=== PATIENT | male | born 1955 | race Caucasian/White ===

== ENCOUNTER → 2018-04-29 11:23 | Outpatient (CLI) | payer BC, SELFPAY ==
--- NOTE | 2018-04-29 | DI.US.S_ITS ---
PROCEDURE: US PERIPH VENOUS LOW EXTREM RT INDICATIONS: RIGHT LOWER LEG PAIN AND SWELLING TECHNIQUE: Real-time imaging, as well as color and pulse Doppler interrogation, were performed of the lower extremity deep veins from the inguinal ligament to the popliteal fossa. COMPARISON: None. FINDINGS: The deep veins are normally compressible, and free of intraluminal thrombus. Color and pulse Doppler demonstrate normal phasic intraluminal flow. There is normal augmentation response to distal compression maneuver. IMPRESSION: No evidence of deep vein thrombosis involving the right lower extremity. Dictated by: Jaqui Jeter MD, PhD on 04/29/2018 at 11:12 Approved by: Jaqui Jeter MD, PhD on 04/29/2018 at 11:12
== END ==
PROVIDERS: PCP Family Medicine; Visit Provider Family Medicine
DX: M79.661 Pain in right lower leg (principal); R22.41 Localized swelling, mass and lump, right lower limb
CPT/HCPCS: 93971

== ENCOUNTER → 2018-05-19 09:47 | Outpatient (CLI) | payer BC, SELFPAY ==
--- NOTE | 2018-05-19 | DI.CT.S_ITS ---
PROCEDURE: CT LE RT W CON INDICATIONS: LOCALIZED SWELLING RIGHT LOWER LIMB TECHNIQUE: After the intra-articular administration of 10 mL of contrast, 1-1.5 mm axial sections acquired through the knee, with 0.75 mm coronal and sagittal reformats. COMPARISON: None. FINDINGS: Image quality: Excellent. Bones: No acute fracture, dislocation, or suspicious osseous lesion is identified involving the imaged osseous structures of the bilateral lower extremities. Plantar and Achilles spurs involving the calcaneus are present. There are mild to moderate degenerative changes involving both feet. Mild degenerative changes of the bilateral knees are present. No definite knee joint effusions are evident. Soft tissues: There is prominent atrophy identified involving the bilateral gastrocnemius and soleus muscles. No soft tissue masses or loculated fluid collections are identified. Mild subcutaneous edema about the bilateral lower extremities is more pronounced at the level of the ankles. Both Achilles tendons are noted to be markedly thickened in near their insertions. Calcifications within the distal aspect of the tendons is present, suggesting chronic partial avulsions. Otherwise, please note that evaluation of the tendinous, ligamentous, and cartilaginous structures is not adequate on CT. Extensive atherosclerosis is noted involving the bilateral lower extremity arteries. However, flow is evident to the level of the foot. No suspicious soft tissue enhancement is identified. IMPRESSION: 1. Severe bilateral Achilles tendinopathy with probable intrasubstance partial thickness tearing. This is likely chronic given the pronounced atrophy involving the bilateral gastrocnemius and soleus muscles. Please correlate clinically. 2. Mild to moderate degenerative changes of the knees and bilateral feet. 3. Severe bilateral lower extremity arterial atherosclerosis. 4. Bilateral lower leg subcutaneous edema is more pronounced at the level of the ankle. There are no abscesses or drainable fluid collections. 5. No soft tissue masses or suspicious osseous lesions. Dictated by: Alex Feldman M.D. on 05/19/2018 at 11:25 Approved by: Alex Feldman M.D. on 05/19/2018 at 11:41
== END ==
PROVIDERS: PCP Family Medicine; Visit Provider Family Medicine
DX: R22.41 Localized swelling, mass and lump, right lower limb (principal); M17.0 Bilateral primary osteoarthritis of knee; M19.072 Primary osteoarthritis, left ankle and foot; M19.071 Primary osteoarthritis, right ankle and foot; I70.203 Unspecified atherosclerosis of native arteries of extremities, bilateral legs
CPT/HCPCS: 73701; Q9967

== ENCOUNTER → 2018-07-23 10:17 | Outpatient (CLI) | payer BC, SELFPAY ==
--- NOTE | 2018-07-23 | DI.US.S_ITS ---
PROCEDURE: US ERICK LIMITED SINGLE LEVEL INDICATIONS: CLAUDICATION TECHNIQUE: Ankle-brachial indices were obtained bilaterally and recorded. COMPARISONS: FINDINGS: Right ankle brachial index (ERICK): 1.4 Left ankle brachial index (ERICK): 1.3 >0.95 is within normal limits. 0.5 to 0.9: Mild to moderate disease consistent with claudication; Duplex imaging warranted. <0.5: Moderately severe multilevel disease; rest pain is likely. <0.4: Severe multilevel disease consistent with ischemic ulceration. <0.3: Severe multilevel disease consistent with gangrene and tissue loss. IMPRESSION: Normal ankle brachial index bilaterally. Dictated by: Jaquan Jung M.D. on 07/23/2018 at 12:14 Approved by: Jaquan Jung M.D. on 07/23/2018 at 12:15
== END ==
PROVIDERS: PCP Family Medicine; Visit Provider Family Medicine
DX: I73.9 Peripheral vascular disease, unspecified (principal)
CPT/HCPCS: 93922

== ENCOUNTER → 2019-05-21 10:27 | Outpatient (CLI) | payer BC, SELFPAY ==
--- NOTE | 2019-05-21 | DI.RAD.S_ITS ---
PROCEDURE: XR LUMBAR SPINE MIN 4V INDICATIONS: Polyneuropathy, unspecified TECHNIQUE: 5 views of the lumbar spine were acquired. COMPARISON: None. FINDINGS: Bones: No fracture or focal osseous destruction. Multilevel degenerative endplate sclerosis and spurring. Diffuse facet arthropathy. Straightening of the normal lordotic curvature. Grade 1 anterolisthesis of L4 on L5 diffuse moderate narrowing of lumbar disc spaces. Partially visualized levocurvature of the thoracic spine Soft tissues: Overlying bowel gas pattern is normal. No suspicious soft tissue calcifications. Oblique images: No pars defects. IMPRESSION: Moderate multilevel lumbar spondylosis and facet arthropathy. Grade 1 anterolisthesis of L4 on L5. Dictated by: Darrius Huffman M.D. on 05/21/2019 at 11:37 Approved by: Darrius Huffman M.D. on 05/21/2019 at 11:38
== END ==
PROVIDERS: PCP Nurse Practitioner; Visit Provider Psychiatry & Neurology Neurology
DX: G62.9 Polyneuropathy, unspecified (principal); G96.8 Other specified disorders of central nervous system; M47.816 Spondylosis without myelopathy or radiculopathy, lumbar region; M43.16 Spondylolisthesis, lumbar region
CPT/HCPCS: 72110

== ENCOUNTER → 2019-07-02 07:50 | Outpatient (CLI) | payer BC, SELFPAY ==
--- NOTE | 2019-07-02 | DI.MRI.S_ITS ---
PROCEDURE: MR LUMBAR SPINE WO CON INDICATIONS: Radiculopathy, lumbosacral region TECHNIQUE: Noncontrast sagittal T1 spin echo and T2 fast echo, sagittal STIR, axial T1 and T2 fast spin echo through the lumbar spine. In cases with scoliosis, additional coronal T2 fast spin echo may be performed. COMPARISON: None. FINDINGS: Image quality: Excellent. Alignment and Curvature: Grade 1 anterolisthesis of L4 on L5. Bone Marrow: No fracture. Multilevel degenerative endplate sclerosis and spurring. Diffuse facet arthropathy. Multilevel Schmorl's nodes, without definite adjacent marrow edema. Mild multilevel dorsal epidural lipomatosis. Spinal Cord: Conus medullaris terminates at the L1 level. Visualized cord demonstrates normal signal and size. Paraspinous Soft Tissues: There is nonspecific, dependent posterior subcutaneous soft tissue edema from level of L2-sacrum L1-L2: No definite central canal narrowing. Lateral recesses appear patent. Mild bilateral foraminal stenosis L2-L3: Severe central canal narrowing. Severe partial effacement of both lateral recesses with bilaterally symmetric appearance. Severe left foraminal stenosis with nerve root compression. Moderate right foraminal stenosis with nerve root compression L3-L4: Severe central canal narrowing. Partial effacement of both lateral recesses with bilaterally symmetric appearance. Moderate right foraminal narrowing with slight nerve root compression. Moderate left foraminal stenosis. L4-L5: Severe central canal narrowing. Partial effacement of both lateral recesses with bilaterally symmetric appearance. Moderate to severe bilateral foraminal stenosis with borderline nerve root compression. L5-S1: Dorsal epidural lipomatosis. Mild central canal narrowing. Partial effacement of both lateral recesses with bilaterally symmetric appearance. Severe right foraminal stenosis with slight nerve root compression. Moderate left foraminal stenosis IMPRESSION: Diffuse lumbar spondylosis and facet arthropathy. Grade 1 anterolisthesis of L4 on L5. Severe central canal stenoses at L2-L3, L3-L4, L4-L5 Diffuse, bilateral foraminal stenoses as detailed above by spinal level. Dictated by: Darrius Huffman M.D. on 07/02/2019 at 9:12 Approved by: Darrius Huffman M.D. on 07/02/2019 at 9:21
== END ==
PROVIDERS: PCP Nurse Practitioner; Visit Provider Psychiatry & Neurology Neurology
DX: M47.26 Other spondylosis with radiculopathy, lumbar region (principal); M48.061 Spinal stenosis, lumbar region without neurogenic claudication; M48.07 Spinal stenosis, lumbosacral region; M43.16 Spondylolisthesis, lumbar region
CPT/HCPCS: 72148

== ENCOUNTER → 2019-10-21 08:31 | Outpatient (CLI) | payer BC, SELFPAY ==
--- NOTE | 2019-10-21 | DI.MRI.S_ITS ---
PROCEDURE: MR CERVICAL SPINE WO CON INDICATIONS: Bilat hand numbness; Hx severe lumbar stenosis TECHNIQUE: Noncontrast sagittal T1 spin echo and T2 fast spin echo, sagittal STIR, foraminal oblique sagittal T2 fast spin echo, and axial gradient echo or T2 fast spin echo through the cervical spine. COMPARISON: None. FINDINGS: Image quality: Excellent. Alignment and Curvature: There is mild straightening of the mid and lower cervical spine. Bone Marrow: Marrow demonstrates normal overall signal. Incidental note of vertebral body hemangioma at C7. Spinal Cord: Effacement and flattening of the cervical spinal cord at C3 secondary to severe canal stenosis described below. There is associated small focus of myelomalacia. There is also mild effacement of the anterior spinal cord at C4-5 secondary to central posterior disc osteophyte complex. There is effacement and minimal flattening of the spinal cord at C6-7 without associated cord signal abnormalities. No cerebellar tonsillar herniation. Paraspinous Soft Tissues: No paravertebral masses. Prevertebral soft tissues are normal in thickness. C2-C3: Minimal bilateral uncovertebral osteoarthrosis. No significant neuroforaminal stenosis. No significant spinal canal stenosis. C3-C4: Moderate degenerative endplate changes with endplate osteophyte formation and broad-based posterior disc osteophyte complex. Severe bilateral uncovertebral osteoarthrosis and bilateral facet arthropathy are also noted. Combination of findings result in severe left and moderate-severe right bilateral neuroforaminal stenosis and severe spinal canal stenosis at this level. Residual AP diameter measures approximately 6 mm. There is associated cord deformation and small focus of increased T2 signal intensity of the spinal cord compatible with myelomalacia. C4-C5: Degenerative endplate changes with prominent endplate osteophyte formation, bilateral facet arthrosis, and left greater than right bilateral uncovertebral osteoarthrosis. Findings result in moderate left and mild right bilateral neuroforaminal stenosis and moderate spinal canal stenosis. No cord signal abnormalities. Mild effacement of the anterior spinal cord. C5-C6: Mild bilateral uncovertebral osteoarthrosis and minimal facet arthropathy. No significant neuroforaminal or spinal canal stenosis at this level. C6-C7: Degenerative endplate changes, endplate osteophyte formation, bilateral facet arthropathy, bilateral uncovertebral osteoarthrosis, and eccentric to the right broad-based posterior disc osteophyte complex results in moderate-severe right and moderate left neuroforaminal stenosis and severe spinal canal stenosis. There is effacement of the spinal cord at this level without cord signal abnormalities. C7-T1: Mild bilateral uncovertebral osteoarthrosis and facet arthropathy. No significant neuroforaminal or spinal canal stenosis. IMPRESSION: Severe multilevel, multifactorial cervical spondylosis noted throughout most of the cervical spine as detailed above vertebral body level. Findings are most severe at C3-4 where severe spinal canal stenosis is identified and associated with a small focus of abnormal T2 spinal cord hyperintensity consistent with myelomalacia. Please see above for details by vertebral body level. Dictated by: Chico Rossi M.D. on 10/21/2019 at 13:43 Approved by: Chico Rossi M.D. on 10/21/2019 at 14:01
== END ==
PROVIDERS: PCP Nurse Practitioner; Referring Provider Neurological Surgery; Visit Provider Neurological Surgery
DX: R20.0 Anesthesia of skin (principal); M47.812 Spondylosis without myelopathy or radiculopathy, cervical region; M48.02 Spinal stenosis, cervical region; M48.061 Spinal stenosis, lumbar region without neurogenic claudication; G95.89 Other specified diseases of spinal cord
CPT/HCPCS: 72141

== ENCOUNTER → 2020-02-17 10:38 | Outpatient (CLI) | payer BC, SELFPAY ==
--- NOTE | 2020-02-17 10:43 | DI.RAD.S_ITS ---
PROCEDURE: XR CERVICAL SPINE 1V INDICATIONS: SPINE PAIN TECHNIQUE: Single lateral view of the cervical spine acquired. COMPARISON: [facility], MR, MR CERVICAL SPINE WO CON, 10/21/2019, 8:45. FINDINGS: Bones: Postoperative changes are seen, with an anterior cervical spine fusion plate at the C3 through C7 levels. The fusion plate appears well seated. No findings of hardware failure or hardware loosening are seen. Disc spacers are seen throughout the fused region. There is straightening of the normal cervical lordosis. No displaced fractures are seen. No suspicious lytic or blastic lesions are seen. Soft tissues: No prevertebral soft tissue swelling. IMPRESSION: Unremarkable postoperative hardware can be seen on this single view study. Dictated by: Luis Alberto Moscoso M.D. on 02/17/2020 at 11:02 Approved by: Luis Alberto Moscoso M.D. on 02/17/2020 at 11:03
== END ==
PROVIDERS: PCP Nurse Practitioner; Referring Provider Neurological Surgery; Visit Provider Neurological Surgery
DX: M48.062 Spinal stenosis, lumbar region with neurogenic claudication (principal); M54.9 Dorsalgia, unspecified; Z98.1 Arthrodesis status
CPT/HCPCS: 72020

== ENCOUNTER → 2020-06-29 10:13 | Outpatient (CLI) | payer BC, SELFPAY ==
--- NOTE | 2020-06-29 | DI.RAD.S_ITS ---
PROCEDURE: XR CERVICAL SPINE 4V OR 5V INDICATIONS: lumbar stenosis TECHNIQUE: 5 views of the cervical spine were acquired. COMPARISON: [facility], CR, XR CERVICAL SPINE 1V, 02/17/2020, 10:33. FINDINGS: Bones: No fracture. Postsurgical change related to ACDF from C3-C7. Interbody cage grafts and chronic osseous fusion from C3-C7. Diffuse facet arthropathy. Straightening of the normal lordotic curvature. Hardware appears intact. No evidence of loosening. No evidence of abnormal motion with dynamic flexion and extension lateral views. Soft tissues: Prevertebral soft tissues are normal in thickness. IMPRESSION: No evidence of abnormal motion with dynamic flexion and extension lateral views. Postsurgical and degenerative changes as above Dictated by: Darrius Huffman M.D. on 06/29/2020 at 14:22 Approved by: Darrius Huffman M.D. on 06/29/2020 at 14:28
== END ==
PROVIDERS: PCP Nurse Practitioner; Referring Provider Neurological Surgery; Visit Provider Neurological Surgery
DX: M48.062 Spinal stenosis, lumbar region with neurogenic claudication (principal)
CPT/HCPCS: 72050

== ENCOUNTER → 2020-07-20 11:17 | Outpatient (CLI) | payer BC, SELFPAY ==
[2020-07-20 12:06] LABS: Appearance Urine UA CLEAR; Bilirubin Urine UA NEGATIVE (NEGATIVE); Color Urine UA YELLOW; Glucose Urine UA NEGATIVE (Negative); Ketones Urine UA NEGATIVE (NEGATIVE); Leukocyte Esterase Urine UA NEGATIVE (NEGATIVE); Nitrite Urine UA NEGATIVE (Negative); Occult Blood Urine UA NEGATIVE (Negative); Protein Urine UA NEGATIVE (Negative); Specific Gravity Urine UA 1.015 (1.000-1.035); Urobilinogen Urine UA 0.2 E.U./dL (0.2)
[2020-07-20 12:36] LABS: Bacteria Urine Few (2-10); Calcium Oxalate Crystals Urine Occasional; Culture Indicated Urine Cult Not Indicated; RBC Urine 0-1/HPF (0-5/HPF); Squamous Epithelial Cell Urine 0-1 /HPF (0-5/HPF); WBC Urine 0-1/HPF (0-5/HPF)
== END ==
PROVIDERS: PCP Nurse Practitioner; Referring Provider Nurse Practitioner; Visit Provider Neurological Surgery
DX: Z01.812 Encounter for preprocedural laboratory examination (principal)
CPT/HCPCS: 81001

== ENCOUNTER → 2020-12-19 08:42 | Outpatient (CLI) | payer BC, SELFPAY ==
[2020-12-19 12:10] LABS: COVID19 -Nasal RAPID Negative (Negative)
== END ==
PROVIDERS: PCP Nurse Practitioner; Referring Provider Physician Assistant; Visit Provider Physician Assistant
DX: Z01.812 Encounter for preprocedural laboratory examination (principal); Z20.822 Contact with and (suspected) exposure to COVID-19
CPT/HCPCS: 87635

== ENCOUNTER → 2020-12-19 08:58 | Outpatient (CLI) | payer BC, SELFPAY ==
--- NOTE | 2020-12-20 09:17 | PM.TREADMILL ---
Cardiac Stress Test Report Referral & Results Date Patient Seen: 12/20/20 Time Patient Seen: 09:00 Requesting provider: Katie Izaguirre Indication: Chest tightness Rest ECG: Sinus rhythm with occasional PAC Procedure Note: Today following both written and verbal informed consent the patient was exercised according to a standard Edmund protocol patient went for a total of 6 minutes achieving a maximum heart rate of 137 maximum systolic blood pressure of 166. This is approximately 7.0 METs. Exercise was terminated at this point because of fatigue, angina, and worsening balance. Patient was also given Cardiolite through a previously started Hep-Lock IV by the licensed nuclear operator approximately 1 minute prior to the cessation of exercise. Normal hemodynamic response to exercise. Presenting complaint of chest tightness was reproduced to peak exercise. Balance problems limited performance. GHADA estimated at +25% on active scale. No EKG changes. Impression: Intermediate probability for ischemia. Perfusion imaging pending. Please note: Actual ECG tracings can be found in the PACS system.
--- NOTE | 2020-12-20 18:20 | DI.NM.S_ITS ---
DATE OF SERVICE: 12/19/2020 PROCEDURE: Exercise perfusion study. INDICATION: Shortness of breath with underlying hypertension. RADIOPHARMACEUTICAL: 25.0 millicurie technetium-99m Myoview IV was injected at stress and 23.9 millicurie technetium-99m Myoview IV was injected at rest. CARDIAC STRESS: The patient underwent exercise perfusion study under the supervision of an attending staff. The patient walked on Edmund protocol for 6 minutes, achieved 90 percent of target heart rate. Baseline blood pressure 132/90. Peak blood pressure 166/100. Test was discontinued because of symptoms of balance problem, fatigue and chest tightness. Baseline EKG revealed sinus rhythm. During stress, there were no convincing ischemic changes seen. Some PACs and PVCs were seen without any ventricular tachycardia. The patient achieved 7 METs of workload. Functional aerobic impairment positive 25 percent. RAW DATA: There is increased subdiaphragmatic activity. The patient's weight is 256 pounds. GATED STUDY: Resting LV ejection fraction 81 percent and stress LV ejection fraction 87 percent without any obvious wall motion abnormalities. Resting end- diastolic volume 79 mL. TID ratio 0.80, which is within normal limits. Lung/heart ratio 0.33, which is within normal limits. MYOCARDIAL PERFUSION: Stress supine and resting supine images revealed small size, mildly decreased perfusion of basal inferior wall, which got completely resolved during prone images, suggestive of diaphragmatic tissue attenuation artifact. Stress prone images revealed normal myocardial perfusion. CONCLUSION: I will call this study a normal myocardial perfusion study. No convincing ischemia or infarction pattern seen. Diminished exercise tolerance. Preserved left ventricular function. No obvious ischemic electrocardiographic changes. Normal hemodynamic response. The patient developed chest tightness, fatigue and balance problem during exercise. As far as perfusion scan is concerned, this is a low-risk myocardial perfusion scan. Clinical correlation is recommended. Blane Mercedes - DARÍO/chemo/yoselyn doc#: [id number]/job#: [id number] dd: 12/20/2020 17:10:00 dt: 12/20/2020 17:24:00 DICTATING MD/COPIES TO: Daniel Yañez MD COPIES MNE: MANUELITO;
== END ==
PROVIDERS: PCP Nurse Practitioner; Referring Provider Nurse Practitioner; Visit Provider Nurse Practitioner
DX: Z01.812 Encounter for preprocedural laboratory examination (principal); Z20.822 Contact with and (suspected) exposure to COVID-19; R06.00 Dyspnea, unspecified; R07.89 Other chest pain; R06.02 Shortness of breath; I10 Essential (primary) hypertension
CPT/HCPCS: 78452; 87635; 93016; 93017; 93018; A9502

== ENCOUNTER → 2022-07-23 09:51 | Outpatient (CLI) | payer BC, SELFPAY ==
[2022-07-23 11:09] LABS: Alanine Aminotransferase 39 IU/L (<50); Albumin 3.9 g/dL (3.5-5.0); Albumin Globulin Ratio 0.9 (1.0-2.8); Alkaline Phosphatase 142 U/L (38-126); Aspartate Aminotransferase 57 IU/L (17-59); BUN Creatinine Ratio 5.8 (6-22); Bilirubin Total 1.2 mg/dL (0.2-1.3); Blood Urea Nitrogen 4 mg/dL (9-20); Calcium 9.3 mg/dL (8.4-10.2); Carbon Dioxide 22 mmol/L (22-32); Chloride 100 mmol/L (98-107); Cholesterol 129 mg/dL (140-199); Estimated Glomerular Filt Rate > 60 mL/min (>60); Globulin 4.2 g/dL (1.7-4.1); Glucose 122 mg/dL (80-110); HDL Cholesterol 33 mg/dL (40-60); HEMOLYSIS < 15 (0-50); LDL Cholesterol Calculated 77 mg/dL (<100); Sodium 134 mmol/L (137-145); Total Protein 8.1 g/dL (6.3-8.2); Triglycerides 95 mg/dL (35-150)
[2022-07-23 11:25] LABS: Free T3, Triiodothyronine Free 4.28 pg/mL (2.77-5.27)
[2022-07-23 11:37] LABS: Prostate Specific Antigen Scrn 0.482 ng/mL (0.1-4.0)
[2022-07-23 11:39] LABS: Thyroid Stimulating Hormone 2.39 uIU/mL (0.47-4.68)
[2022-07-23 12:05] LABS: Creatinine Urine Random 77.8 mg/dL; Microalbumin Urine Random < 0.6 mg/dL (0-1.6)
== END ==
PROVIDERS: PCP Nurse Practitioner; Referring Provider Nurse Practitioner; Visit Provider Nurse Practitioner
DX: E78.2 Mixed hyperlipidemia (principal); Z79.899 Other long term (current) drug therapy; Z12.5 Encounter for screening for malignant neoplasm of prostate
CPT/HCPCS: 36415; 80053; 80061; 82043; 82570; 84439; 84443; 84481; G0103

== ENCOUNTER → 2022-10-16 08:26 | Outpatient (CLI) | payer BC, SELFPAY ==
[2022-10-16 10:39] LABS: Alanine Aminotransferase 41 IU/L (<50); Albumin 3.6 g/dL (3.5-5.0); Albumin Globulin Ratio 0.9 (1.0-2.8); Alkaline Phosphatase 106 U/L (38-126); Aspartate Aminotransferase 61 IU/L (17-59); BUN Creatinine Ratio 7.7 (6-22); Bilirubin Total 1.2 mg/dL (0.2-1.3); Blood Urea Nitrogen 5 mg/dL (9-20); Carbon Dioxide 22 mmol/L (22-32); Chloride 102 mmol/L (98-107); Estimated Glomerular Filt Rate > 60 mL/min (>60); Globulin 3.9 g/dL (1.7-4.1); Glucose 109 mg/dL (80-110); HEMOLYSIS < 15 (0-50); Potassium 4.4 mmol/L (3.4-5.1); Sodium 134 mmol/L (137-145); Total Protein 7.5 g/dL (6.3-8.2)
[2022-10-17 06:37] LABS: x Labcorp Estim. Avg Glu (eAG) 114 mg/dL (.); x Labcorp Hemoglobin A1c 5.6 % (4.8-5.6)
== END ==
PROVIDERS: PCP Nurse Practitioner; Referring Provider Nurse Practitioner; Visit Provider Nurse Practitioner
DX: I10 Essential (primary) hypertension (principal); R73.01 Impaired fasting glucose
CPT/HCPCS: 36415; 80053; 83036

== ENCOUNTER → 2022-11-15 08:58 | Outpatient (CLI) | payer BC, SELFPAY ==
--- NOTE | 2022-11-15 09:00 | DI.US.S_ITS ---
PROCEDURE: US ABDOMEN COMPLETE INDICATIONS: ELEVATED LFTs PERSISTENTLY TECHNIQUE: Real-time scanning was performed of the abdominal and retroperitoneal organs, with image documentation. COMPARISON: None. FINDINGS: Liver: Liver is enlarged and demonstrates diffusely increased echogenicity. Gallbladder: Is within normal limits Biliary ducts: Intrahepatic bile ducts are non-dilated. Extrahepatic bile duct caliber measures 4 mm. Normal is 6-7 mm or less in diameter, or 10 mm or less post-cholecystectomy. Pancreas: Suboptimally visualized Spleen: Spleen is normal in size and homogeneous in echotexture. Kidneys: Kidneys are normal in size and echotexture. Right kidney measures 11.0 cm long; left kidney measures 11.8 cm long. No hydronephrosis or nephrolithiasis. No solid masses. Aorta: Visualized aorta is normal in caliber at less than 3 cm. Iliacs: Proximal common iliac arteries are normal in caliber at less than 2.5 cm. IVC: Intrahepatic inferior vena cava is patent. Miscellaneous: No free abdominal fluid. IMPRESSION: 1. Hepatic steatosis. 2. No acute process. Dictated by: Shawn Li M.D. on 11/15/2022 at 13:14 Transcribed by: OFELIA on 11/15/2022 at 13:15 Approved by: Shawn Li M.D. on 11/15/2022 at 16:00
--- NOTE | 2022-11-15 09:00 | DI.ECHO.S_ITS ---
[facility]---------+ [facility] +---------+ : : [address] : : : : [id number] : : : : Phone: [phone]+ Echocardiogram Report + + :Name: JAMES VILLALOBOS Study Date: 11/15/2022 Height: 71 in : [facility] Reading[facility]: Weight: 245 lb : : Gender: Male BSA: 2.3 m2 : :: 1955 Age: 67 yrs BP: 144/85 mmHg: :Reason For Study: HYPERTENSION HR: 80 : :Ordering Physician: CHRISTINA, : :DC Performed By: CARLIN PIERSON : :Referring: DC VASQUEZ : + + Interpretation Summary The ejection fraction is estimated to be 60-65%. Diastolic parameters suggest probable normal left ventricular diastolic function and normal filling pressures. The right ventricle is normal in size and function. The right ventricular systolic pressure is estimated to be at least 26 mmHg based on an estimated right atrial pressure of 3 mm Hg. Both atria are normal in size. The aortic root is borderline dilated. No significant valvular abnormality. Procedure: A two-dimensional transthoracic echocardiogram with color flow and Doppler was performed. The study quality was technically adequate. There is no prior echocardiogram noted for this patient. The patient was in normal sinus rhythm during the exam. Left Ventricle: The left ventricle is normal in size and wall thickness. Left ventricular systolic function is normal. The ejection fraction is estimated to be 60-65%. There are no obvious focal wall motion abnormalities noted but poor endocardial definition reduces the sensitivity for the detection of such. Diastolic parameters suggest probable normal left ventricular diastolic function and normal filling pressures. Right Ventricle: The right ventricle is normal in size and function. Atria: Both atria are normal in size. Mitral Valve: The mitral valve leaflets appear mildly thickened, but open well. There is trace mitral regurgitation. Aortic Valve: The aortic valve is trileaflet. The aortic valve is slightly calcified. There is no hemodynamically significant valvular aortic stenosis. There is trace aortic regurgitation. Tricuspid Valve: The tricuspid valve is normal. There is mild tricuspid regurgitation. The right ventricular systolic pressure is estimated to be at least 26 mmHg based on an estimated right atrial pressure of 3 mm Hg. Pulmonic Valve: The pulmonic valve leaflets are thin and pliable; valve motion is normal. There is no pulmonic valvular regurgitation. Great Vessels: The aortic root is borderline dilated. The ascending aorta could not be visualized. The IVC is of normal diameter and collapses greater than 50% with a sniff. This suggests a low right atrial pressure of 3 mm Hg. Pericardium/ Pleura There is no pericardial effusion. There is no pleural effusion. MMode/2D Measurements & Calculations LVIDd: 4.2 cm LVOT diam: 2.0 cm LVIDs: 2.8 cm Ao root diam: 3.8 cm FS: 33.3 % IVSd: 0.80 cm LVPWd: 1.0 cm LV mcgowan. diameter/BSA (cm/m^2): 1.8 LV sys. diameter/BSA (cm/m^2): 1.2 LA A2 area: 20.0 cm2 RA long axis: 5.7 cm LA A4 area: 13.3 cm2 LA length (vol): 5.7 cm LA vol: 39.7 ml LA vol index: 17.3 ml/m2 RVD1 (basal): 5.2 cm LVLs ap4: 6.3 cm LVLd ap2: 8.1 cm TAPSE_phl: 1.9 cm LVLs ap2: 6.6 cm Doppler Measurements & Calculations Ao V2 max: 197.0 cm/sec LVOT Max Stephen: 140.0 cm/sec Ao V2 mean: 135.0 cm/sec LV V1 max P.8 mmHg Ao max P.0 mmHg LV V1 VTI: 29.6 cm Ao mean P.0 mmHg JAKE(I,D): 2.9 cm2 Ao V2 VTI: 32.6 cm JAKE(V,D): 2.2 cm2 sev ratio: 0.91 JAKE indexed to BSA (cm^2/m^2): 1.2 MV E max stephen: 79.7 cm/sec TR max stephen: 240.0 cm/sec MV A max stephen: 86.5 cm/sec TR max P.0 mmHg MV E/A: 0.92 PA V2 max: 106.0 cm/sec Med Peak E' Stpehen: 8.4 cm/sec PA V2 mean: 73.0 cm/sec E/E' med: 9.5 PA mean P.0 mmHg Lat Peak E' Stephen: 8.4 cm/sec PA pr(Accel): 52.0 mmHg E/E' lat: 9.5 E/e' average: 9.5 MV dec time: 0.29 sec SV(LVOT): 93.0 ml AV VR_phl: 0.71 JAKE(VTI)/BSA_phl: 1.2 MV P1/2t-pr_phl: 84.0 msec Reading Physician:PM
== END ==
PROVIDERS: PCP Nurse Practitioner; Referring Provider Nurse Practitioner; Visit Provider Nurse Practitioner
DX: I10 Essential (primary) hypertension (principal); R79.89 Other specified abnormal findings of blood chemistry; I77.819 Aortic ectasia, unspecified site; K76.0 Fatty (change of) liver, not elsewhere classified
CPT/HCPCS: 76700; 93005; 93306

== ENCOUNTER 2023-01-08 09:25 | Day surgery (SDC) | payer BC, SELFPAY ==
[2023-01-08 09:52] VITALS: BMI 33.6
[2023-01-08 10:07] VITALS: BP 130/85; PULSE 66; RESP 16; TEMP 36.3; O2SAT 96
[2023-01-08] MEDS: LACTATED RINGERS 1,000 ML 100 ML IV (10:12)
--- NOTE | 2023-01-08 10:35 | P.HP_ITS ---
History of Present Illness History of Present Illness Date Patient Seen: 01/08/23 Time Patient Seen: 10:35 Chief complaint: Screening Colonoscopy Narrative: Colon cancer screening. Last colonoscopy was 5 years ago and he does not recall that there were polyps identified. Does have intermittent constipation. Family history noncontributory at his age. [facility] Medical History Cellulitis Chronic pain Daily consumption of alcohol Dyspnea Erectile dysfunction Essential tremor Family history of dementia Hyperlipidemia, mixed Hypertension Melanoma (~2017) Numbness and tingling of both feet Peripheral arterial disease Tremor of both hands Urinary urgency Varicose veins of left lower extremity Surgical History H/O cervical discectomy History of tonsillectomy Status post correction of deviated nasal septum Family History Mother Dementia Sister Tremor Social History marital status: household members: spouse pets and animals: No education level: other occupational status: other 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 occupational 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[employer]), 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 travel history: recurrent leisure activities: other other: Hiking and guitar seatbelt use: always water heater temp set < 120 deg: Yes working smoke detector in home: Yes fire extinguisher in home: Yes carbon monox detector in home: Yes firearms in home: No do you feel safe at home: Yes Smoking Status: Never smoker alcohol intake: current during the past year weight has: remained stable well-balanced diet: daily or most days daily servings fruits/ve-4 caffeine: Yes (1-2 drinks per day,/soda) eating out: rarely or never Type(s) of exercise: other frequency: 3-4 times per week duration: 45-60 minutes/day additional social history: Yard work/Hiking Meds Home Medications and Allergies Home Medications Medication Instructions Recorded Confirmed Type gabapentin 300 mg capsule 600 mg PO BID 07/30/22 01/08/23 History olmesartan 20 mg tablet See Rx Instructions .Route 12/17/22 01/08/23 Rx .COMPLEX #90 tabs Allergies Allergy/AdvReac Type Severity Reaction Status Date / Time propranolol AdvReac Intermediate racing Verified 01/08/23 09:50 heart, tight chest, dizzy Review of Systems Review of Systems ROS: Yes All systems reviewed with the patient and are negative except as otherwise documented Exam Vital Signs (past 8 hours): - 01/08/23 10:07 Temperature 97.4 F L Pulse Rate 66 Respiratory Rate 16 Blood Pressure 130/85 Pulse Oximetry 96 Oxygen Delivery Method Room Air Oxygen Delivery Method Room Air Const General: cooperative and frail appearing Nutritional Appearance: overweight Orientation: alert, awake and oriented x3 HENMT Head: normocephalic and atraumatic Eyes General: appearance normal, both eyes and all related structures Sclera: sclerae normal Neck Neck: trachea midline Resp Effort & Inspection: normal respiratory effort and able to speak in complete sentences Cardio Rate: regular rate Rhythm: regular rhythm GI Palpation: soft Skin General: atrophy, crusts and dry skin Neuro General: patient alert, patient awake and patient oriented x3 Cognition: normal cognition Motor: tremor Psych Mental Status: mental status grossly normal Judgment: judgment good Assessment & Plan Assessment & Plan narrative: Colonoscopy under MAC for colon cancer screening Time Spent With Patient Time with patient: less than 30 minutes
--- NOTE | 2023-01-08 10:47 | PM.OP.COLON ---
Operative Date/Time/Diagnoses Date of procedure: 01/08/23 Time of procedure: 10:47 Pre-op diagnosis: colon cancer screening Post-op diagnosis: same Procedure & Clinicians Study performed: colonoscopy under MAC Same procedure as scheduled: Yes Indications: Colon cancer screening Surgeon: Molly Carrington Procedure Notes Procedure in detail: Preop diagnosis: Colon cancer screening Postop diagnosis: Same Operative procedure: Colonoscopy under MAC Surgeon: Carol Carrington MD Findings: Severe large and moderate size diverticuli from the mid transverse down the entire descending colon. Bowel prep is poor. No polyps identified Procedure: Patient placed in lateral position. Rectal exam performed showing normal tone no masses. Colonoscope inserted into rectum and advanced to ileocecal valve with minimal difficulty. Insufflation, extraction of the scope, including retroflex show no evidence of polyps but have the above findings of severe diverticulosis of the distal transverse and descending colon. Impression: Severe diverticulosis of the left hemicolon. No polyps identified. Plan: Repeat colonoscopy 10 years unless otherwise indicated by change in clinical condition Findings: divertiulosis Specimen(s): none sent Complications: none Post-procedure Recommendations: Colonoscopy in 10 years Follow up: as needed Disposition: PACU
[2023-01-08 11:09] VITALS: BP 99/62; PULSE 68; RESP 17; TEMP 36.1; O2SAT 90
[2023-01-08 11:14] VITALS: BP 105/69; PULSE 67; RESP 18; O2SAT 98
[2023-01-08 11:19] VITALS: BP 113/77; PULSE 68; RESP 14; O2SAT 95
[2023-01-08 11:25] VITALS: BP 105/71; PULSE 65; RESP 20; TEMP 36.4; O2SAT 95
== END 2023-01-08 11:37 | disposition home or self-care (01) ==
PROVIDERS: PCP Nurse Practitioner; Referring Provider Nurse Practitioner; Visit Provider Surgery
PROC: 0DJD8ZZ Inspection of Lower Intestinal Tract, Via Natural or Artificial Opening Endoscopic (ICD-10-PCS; CPT 45378; principal; 2023-01-08 10:45)
DX: Z12.11 Encounter for screening for malignant neoplasm of colon (principal); K57.90 Diverticulosis of intestine, part unspecified, without perforation or abscess without bleeding; I10 Essential (primary) hypertension; E78.5 Hyperlipidemia, unspecified
CPT/HCPCS: G0121; J2704

== ENCOUNTER → 2023-12-27 08:45 | Outpatient (CLI) | payer BC, SELFPAY ==
[2023-12-27 09:59] LABS: Hemoglobin A1C% w Est Avg Glu 5.5 % (4.0-6.0)
[2023-12-27 10:37] LABS: Alanine Aminotransferase 30 IU/L (<50); Alkaline Phosphatase 120 U/L (38-126); Aspartate Aminotransferase 44 IU/L (17-59); BUN Creatinine Ratio 7.2 (6-22); Bilirubin Total 1.5 mg/dL (0.2-1.3); Blood Urea Nitrogen 6 mg/dL (9-20); Calcium 9.7 mg/dL (8.4-10.2); Carbon Dioxide 22 mmol/L (22-32); Chloride 103 mmol/L (98-107); Cholesterol 147 mg/dL (140-199); Estimated Glomerular Filt Rate > 60 mL/min (>60); Glucose 135 mg/dL (80-110); HDL Cholesterol 47 mg/dL (40-60); HEMOLYSIS < 15 (0-50); LDL Cholesterol Calculated 77 mg/dL (<100); Potassium 4.8 mmol/L (3.4-5.1); Sodium 134 mmol/L (137-145); Triglycerides 114 mg/dL (35-150)
[2023-12-27 11:04] LABS: Prostate Specific Antigen 0.521 ng/mL (0.10-4.00)
[2023-12-27 11:16] LABS: Hep C Virus Ab w/Reflex Quant NEGATIVE s/c (NEGATIVE)
[2023-12-27 14:29] LABS: Creatinine Urine Random 109.23 mg/dL
[2023-12-27 14:33] LABS: Microalbumin Urine Random 1.3 mg/dL (0-1.6)
== END ==
LOC: LAB 08:46
PROVIDERS: PCP Nurse Practitioner; Referring Provider Nurse Practitioner; Visit Provider Nurse Practitioner
DX: Z11.59 Encounter for screening for other viral diseases (principal); Z12.5 Encounter for screening for malignant neoplasm of prostate; K76.0 Fatty (change of) liver, not elsewhere classified; E78.2 Mixed hyperlipidemia; I10 Essential (primary) hypertension; R73.09 Other abnormal glucose; Z79.899 Other long term (current) drug therapy
CPT/HCPCS: 36415; 80053; 80061; 82043; 82570; 83036; 84153; 84443; 86803

== ENCOUNTER → 2024-01-13 12:03 | Outpatient (CLI) | payer BC, SELFPAY ==
--- NOTE | 2024-01-13 12:06 | DI.RAD.S_ITS ---
PROCEDURE: XR CHEST 2V INDICATIONS: cough TECHNIQUE: 2 views of the chest were acquired. COMPARISON: None. FINDINGS: Surgical changes and devices: None. Lungs and pleura: Lungs are clear. No pleural effusions or pneumothorax. Mediastinum: Mediastinal contours are normal. Heart size is normal. Bones and chest wall: No suspicious bony abnormalities. Soft tissues appear unremarkable. IMPRESSION: No acute cardiopulmonary abnormality is seen. Dictated by: Salima Suero M.D.,Ph.D. on 01/13/2024 at 21:04 Approved by: Salima Suero M.D.,Ph.D. on 01/13/2024 at 21:04
== END ==
PROVIDERS: PCP Nurse Practitioner; Referring Provider Nurse Practitioner; Visit Provider Nurse Practitioner
DX: R05.9 Cough, unspecified (principal)
CPT/HCPCS: 71046

== ENCOUNTER → 2024-12-07 14:36 | Outpatient (CLI) | payer BC, SELFPAY ==
[2024-12-07 15:16] LABS: Alanine Aminotransferase 55 IU/L (<50); Albumin 4.2 g/dL (3.5-5.0); Alkaline Phosphatase 106 U/L (38-126); Aspartate Aminotransferase 75 IU/L (17-59); Bilirubin Total 1.1 mg/dL (0.2-1.3); Blood Urea Nitrogen 10 mg/dL (9-20); Calcium 10.2 mg/dL (8.4-10.2); Carbon Dioxide 26 mmol/L (22-32); Chloride 104 mmol/L (98-107); Estimated Glomerular Filt Rate > 60 mL/min (>60); Globulin 3.5 g/dL (1.7-4.1); Glucose 117 mg/dL (70-99); HEMOLYSIS < 15 (0-50); Potassium 4.5 mmol/L (3.4-5.1); Sodium 138 mmol/L (137-145); Total Protein 7.7 g/dL (6.3-8.2)
[2024-12-07 15:17] LABS: Albumin Globulin Ratio 1.2 (1.0-2.8)
[2024-12-07 15:24] LABS: Hemoglobin A1C% w Est Avg Glu 5.3 % (4.0-6.0)
== END ==
PROVIDERS: PCP Internal Medicine; Referring Provider Internal Medicine; Visit Provider Internal Medicine
DX: I10 Essential (primary) hypertension (principal); G25.0 Essential tremor; R73.9 Hyperglycemia, unspecified
CPT/HCPCS: 36415; 80053; 83036